=== PATIENT | male | born 1965 | race African-American/Black ===

== ENCOUNTER 2020-09-29 13:28 | Inpatient (IN) | payer OTHER ==
[2020-09-29 14:21] VITALS: BMI 33.2
[2020-09-29] MEDS ORDERED: ACETAMINOPHEN 325 MG TABLET (FP) PO PRN ×2 (16:18)
[2020-09-29] MEDS ORDERED: NICOTINE POLACRILEX 2 MG GUM BUC PRN (16:18)
[2020-09-29] MEDS ORDERED: MENTHOL/PHENOL 1 EACH UD MM PRN (16:18)
[2020-09-29] MEDS ORDERED: chlordiazePOXIDE HCL 25 MG CAPSULE PO PRN (16:18)
[2020-09-29] MEDS ORDERED: ONDANSETRON *ODT* 4 MG TABLET SL PRN (16:18)
[2020-09-29] MEDS ORDERED: IBUPROFEN 400 MG TABLET (FP) PO PRN (16:18)
[2020-09-29] MEDS ORDERED: MAGNESIUM CITRATE 300 ML BOTTLE PO PRN (16:18)
[2020-09-29] MEDS ORDERED: MAGNESIUM HYDROX 2400MG/30ML ORAL SUSPENSION 30 ML CUP PO PRN (16:18)
[2020-09-29] MEDS ORDERED: MAG HYDROX/AL HYDROX/SIMETH 30 ML UNIT-DOSE CUP PO PRN (16:18)
[2020-09-29] MEDS ORDERED: BISMUTH SUBSALICYLATE 524 MG/30 ML UD PO PRN (16:18)
[2020-09-29] MEDS ORDERED: METHOCARBAMOL 500 MG TABLET PO PRN (16:18)
[2020-09-29] MEDS: PRENATAL VITAMINS W/ FOLIC ACID TABLET (FP) PO SCH (18:30)
[2020-09-29] MEDS: chlordiazePOXIDE HCL 25 MG CAPSULE PO SCH ×2 (18:32→22:40)
[2020-09-29] MEDS: hydrOXYzine PAMOATE 25 MG CAPSULE (FP) PO SCH ×2 (18:32→22:40)
[2020-09-29] MEDS: NICOTINE 7 MG/24 HOURS TOPICAL PATCH TD SCH (18:45)
[2020-09-29] MEDS: MELATONIN 5 MG TABLETS PO SCH (22:40)
[2020-09-29] MEDS: THIAMINE HCL 100 MG TABLET (FP) PO SCH (22:40)
[2020-09-30] MEDS: chlordiazePOXIDE HCL 25 MG CAPSULE PO SCH ×4 (05:32→22:41)
[2020-09-30] MEDS: hydrOXYzine PAMOATE 25 MG CAPSULE (FP) PO SCH ×5 (05:33→22:41)
[2020-09-30] MEDS: PRENATAL VITAMINS W/ FOLIC ACID TABLET (FP) PO SCH (11:38)
[2020-09-30] MEDS: NICOTINE 7 MG/24 HOURS TOPICAL PATCH TD SCH (11:43)
[2020-09-30 13:47] LABS: POTASSIUM 3.6 mmol/L (3.5-5.1)
[2020-09-30 13:53] LABS: HEMATOCRIT 39.1 % (35.4-49); HEMOGLOBIN 12.8 GM/dL (11.7-16.9); MCH 29.5 pg (25.7-33.7); MCHC 32.8 g/dl (32.0-35.9); MEAN PLT VOLUME 9.6 fl (7.5-11.1); PLATELET COUNT 245 K/MM3 (134-434); RBC 4.35 M/mm3 (4.00-5.60); RDW 14.8 % (11.9-15.9); WHITE BLOOD COUNT 10.6 K/mm3 (4.0-10.0)
[2020-09-30 14:00] LABS: ALBUMIN 4.2 g/dl (3.4-5.0); BLOOD UREA NITROGEN 14.3 mg/dL (7-18); CALCIUM 9.2 mg/dL (8.5-10.1)
[2020-09-30 14:03] LABS: CREATININE 1.2 mg/dL (0.55-1.3)
[2020-09-30 14:05] LABS: BILIRUBIN,TOTAL 0.6 mg/dL (0.2-1); TOT PROT 7.5 g/dl (6.4-8.2)
[2020-09-30 15:07] LABS: HIV INTERPRETATION NEGATIVE (NEGATIVE)
[2020-09-30] MEDS: THIAMINE HCL 100 MG TABLET (FP) PO SCH (22:41)
[2020-09-30] MEDS: MELATONIN 5 MG TABLETS PO SCH (22:41)
[2020-10-01] MEDS: hydrOXYzine PAMOATE 25 MG CAPSULE (FP) PO SCH ×5 (06:15→23:17)
[2020-10-01] MEDS: chlordiazePOXIDE HCL 25 MG CAPSULE PO SCH ×4 (06:16→23:18)
[2020-10-01] MEDS: PRENATAL VITAMINS W/ FOLIC ACID TABLET (FP) PO SCH (10:12)
[2020-10-01] MEDS: NICOTINE 7 MG/24 HOURS TOPICAL PATCH TD SCH (10:13)
[2020-10-01 11:29] LABS: HEMATOCRIT 38.1 % (35.4-49); HEMOGLOBIN 12.6 GM/dL (11.7-16.9); MCH 29.5 pg (25.7-33.7); MCHC 33.1 g/dl (32.0-35.9); MEAN PLT VOLUME 9.2 fl (7.5-11.1); PLATELET COUNT 217 K/MM3 (134-434); RBC 4.28 M/mm3 (4.00-5.60); RDW 14.6 % (11.9-15.9); WHITE BLOOD COUNT 7.1 K/mm3 (4.0-10.0)
[2020-10-01] MEDS: MELATONIN 5 MG TABLETS PO SCH (23:16)
[2020-10-01] MEDS: THIAMINE HCL 100 MG TABLET (FP) PO SCH (23:17)
[2020-10-02] MEDS ORDERED: chlordiazePOXIDE HCL 10 MG CAPSULE PO PRN
[2020-10-02] MEDS: hydrOXYzine PAMOATE 25 MG CAPSULE (FP) PO SCH ×5 (05:16→23:14)
[2020-10-02] MEDS: chlordiazePOXIDE HCL 10 MG CAPSULE PO SCH ×4 (05:18→23:15)
[2020-10-02] MEDS: PRENATAL VITAMINS W/ FOLIC ACID TABLET (FP) PO SCH (10:18)
[2020-10-02] MEDS: NICOTINE 7 MG/24 HOURS TOPICAL PATCH TD SCH (10:19)
[2020-10-02] MEDS: THIAMINE HCL 100 MG TABLET (FP) PO SCH (23:14)
[2020-10-02] MEDS: MELATONIN 5 MG TABLETS PO SCH (23:14)
[2020-10-03] MEDS: chlordiazePOXIDE HCL 10 MG CAPSULE PO SCH ×2 (05:45→17:53)
[2020-10-03] MEDS: hydrOXYzine PAMOATE 25 MG CAPSULE (FP) PO SCH ×5 (05:46→22:39)
[2020-10-03] MEDS: NICOTINE 7 MG/24 HOURS TOPICAL PATCH TD SCH (10:09)
[2020-10-03] MEDS: PRENATAL VITAMINS W/ FOLIC ACID TABLET (FP) PO SCH (10:09)
[2020-10-03] MEDS ORDERED: amLODIPine BESYLATE 5 MG TABLET (FP) PO ONE (12:30)
[2020-10-03] MEDS: MELATONIN 5 MG TABLETS PO SCH (22:38)
[2020-10-03] MEDS: THIAMINE HCL 100 MG TABLET (FP) PO SCH (22:39)
[2020-10-04] MEDS ORDERED: chlordiazePOXIDE HCL 10 MG CAPSULE PO ONE (05:00)
[2020-10-04] MEDS: hydrOXYzine PAMOATE 25 MG CAPSULE (FP) PO SCH ×3 (06:16→14:03)
[2020-10-04] MEDS ORDERED: amLODIPine BESYLATE 5 MG TABLET (FP) PO SCH (07:00)
[2020-10-04] MEDS: PRENATAL VITAMINS W/ FOLIC ACID TABLET (FP) PO SCH (10:16)
[2020-10-04] MEDS: NICOTINE 7 MG/24 HOURS TOPICAL PATCH TD SCH (10:17)
[2020-10-04 14:31] VITALS: BP 130/81; PULSE 87; TEMP 98.6
== END 2020-10-04 03:24 | disposition other institution (70) | DRG 774 ==
LOC: YASAS 13:28 → Y3N 16:27
PROVIDERS: ADMIT Allergy & Immunology; ATTEND Allergy & Immunology
PROC: HZ2ZZZZ Detoxification Services for Substance Abuse Treatment (ICD-10-PCS; principal; 2020-09-29)
DX: F10.230 Alcohol dependence with withdrawal, uncomplicated (principal); F13.988 Sedative, hypnotic or anxiolytic use, unspecified with other sedative, hypnotic or anxiolytic-induced disorder; F14.20 Cocaine dependence, uncomplicated; F17.210 Nicotine dependence, cigarettes, uncomplicated; I10 Essential (primary) hypertension; Z91.018 Allergy to other foods
CPT/HCPCS: 36415; 80053; 85027; 86780; 87389; C9803; U0003